=== PATIENT | female | born 1960 | race Caucasian/White ===

== ENCOUNTER 2016-11-14 18:25 | Emergency (ER) | payer OTHER ==
[~2016-11-14] VITALS: Ht 152.4 cm; Wt 48.6 kg
[~2016-11-14 18:25] MED LIST: NOCURR
[2016-11-14 18:28] VITALS: BP 144/91
[2016-11-14] MEDS ORDERED: IBUPROFEN 600 MG TABLET PO ONE (21:45)
== END 2016-11-14 22:44 | disposition home or self-care (01) ==
LOC: EMS 18:27
DX: M72.2 Plantar fascial fibromatosis (principal); R03.0 Elevated blood-pressure reading, without diagnosis of hypertension; F17.210 Nicotine dependence, cigarettes, uncomplicated
CPT/HCPCS: 99282

== ENCOUNTER 2017-05-05 04:26 | Emergency (ER) | payer OTHER ==
[~2017-05-05] VITALS: Ht 152.4 cm; Wt 50.0 kg
[2017-05-05] MEDS ORDERED: SULF1TAB42 PO (04:51)
[2017-05-05] MEDS ORDERED: GABA-531 PO (04:51)
[2017-05-05 05:48] LABS: BASOPHILS % (AUTO) 0.1 % (0.0-2.0); EOSINOPHILS % (AUTO) 0.2 % (1.0-6.0); HEMATOCRIT 31.2 % (36-46); HEMOGLOBIN 10.7 g/dL (12.0-16.0); LYMPHOCYTES # (AUTO) 1.7 K/uL (1.0-4.8); LYMPHOCYTES % (AUTO) 15.5 % (22.0-44.0); MEAN CORPUSCULAR HEMOGLOBIN 30.7 pg (26.0-34.0); MEAN CORPUSCULAR HGB CONC 34.4 G/dL (31.0-37.0); MEAN CORPUSCULAR VOLUME 89 fL (80-100); MONOCYTES % (AUTO) 8.9 % (2.0-9.0); NEUTROPHILS # (AUTO) 8.1 K/uL (1.8-7.7); NEUTROPHILS % (AUTO) 75.3 % (40.0-70.0); PLATELET COUNT (AUTO) 263 K/uL (150-450); RED BLOOD CELL COUNT(AUTO) 3.49 MIL/uL (4.00-5.20); RED CELL DISTRIBUTION WIDTH 15.6 % (11.5-14.5)
[2017-05-05 05:59] LABS: CALCIUM, TOTAL 8.5 mg/dL (8.8-10.5); CREATININE 1.28 mg/dL (0.60-1.30); POTASSIUM 3.7 mmol/L (3.5-5.1)
[2017-05-05 06:07] LABS: ALBUMIN 2.7 g/dL (3.4-5.0); BILIRUBIN,TOTAL 0.4 mg/dL (0.1-1.0)
[2017-05-05] MEDS ORDERED: IOVERSOL 350 MG/ML 100 ML VIAL ONE (07:44)
[2017-05-05] MEDS ORDERED: SODIUM CHLORIDE 0.9% 100 ML ONE (07:44)
[2017-05-05 10:11] LABS: APPEARANCE,URINE CLEAR (CLEAR); BILIRUBIN,URINE NEGATIVE (NEGATIVE); GLUCOSE, URINE (UA) NEGATIVE (NEGATIVE); KETONES,URINE NEGATIVE (NEGATIVE); LEUKOCYTE ESTERASE ,URINE NEGATIVE (NEGATIVE); NITRATE,URINE NEGATIVE (NEGATIVE); OCCULT BLOOD,URINE NEGATIVE (NEGATIVE); PH,URINE 6.5 (5.0-8.0); PROTEIN,URINE NEGATIVE (NEGATIVE)
[2017-05-05 10:41] VITALS: BP 113/77
== END 2017-05-05 10:55 | disposition home or self-care (01) ==
LOC: EMS 04:27
DX: J18.0 Bronchopneumonia, unspecified organism (principal); J84.10 Pulmonary fibrosis, unspecified; D64.9 Anemia, unspecified; F17.210 Nicotine dependence, cigarettes, uncomplicated
CPT/HCPCS: 36415; 71045; 71275; 80053; 81003; 83690; 84484; 85025; 93005; 99285; 99406; J7050; Q9967

== ENCOUNTER 2020-10-13 13:24 | Emergency (ER) | payer OTHER ==
[~2020-10-13] VITALS: Ht 154.9 cm; Wt 52.3 kg
[~2020-10-13 13:24] MED LIST changes: +GABA-1181 PO; -NOCURR; +SULF1TAB42 PO
[2020-10-13 15:34] VITALS: BP 167/97
== END 2020-10-13 15:41 | disposition home or self-care (01) ==
LOC: EMS 13:32
DX: H60.91 Unspecified otitis externa, right ear (principal); I10 Essential (primary) hypertension; F17.210 Nicotine dependence, cigarettes, uncomplicated; Z88.0 Allergy status to penicillin
CPT/HCPCS: 99283; Z7502

== ENCOUNTER 2024-08-09 23:55 | Emergency (ER) | payer OTHER ==
[~2024-08-09] VITALS: Ht 152.4 cm; Wt 54.5 kg
[2024-08-09 23:58] VITALS: BP 164/89; PULSE 112; RESP 32; TEMP 98.6; O2SAT 94
== END 2024-08-10 00:31 | disposition left against medical advice (07) ==
LOC: EMS 23:55
DX: R05.9 Cough, unspecified (principal); R06.02 Shortness of breath; I10 Essential (primary) hypertension; F12.90 Cannabis use, unspecified, uncomplicated; F17.210 Nicotine dependence, cigarettes, uncomplicated; F15.10 Other stimulant abuse, uncomplicated; Z88.0 Allergy status to penicillin
CPT/HCPCS: 93005; 99283